=== PATIENT | male | born 1945 | race Caucasian/White ===

== ENCOUNTER 2020-03-28 05:54 | Inpatient (IN) ==
--- NOTE | 2020-03-12 21:20 | PAT Medication Instructions ---
Medication Instructions Date of Service March 12, 2020 Home Medications amlodipine 5 mg PO HS cholecalciferol (vitamin D3) [Vitamin D3] 25 mcg PO DAILY cyanocobalamin (vitamin B-12) 1,000 mcg PO UD ferrous sulfate [iron] 325 mg PO DAILY furosemide 20 mg PO QAM lisinopril 40 mg PO QAM naproxen sodium [Aleve] 440 mg PO QAM omega 1-fyz-icg-fish oil [Fish Oil] 1 cap PO DAILY potassium chloride 10 meq PO QAM simvastatin 20 mg PO QAM Continue as directed cyanocobalamin (vitamin B-12) 1,000 mcg PO UD ASK your surgeon for instructions naproxen sodium [Aleve] 440 mg PO QAM STOP taking 2 weeks before surgery (or as soon as possible if surgery is within 2 weeks) omega 7-sle-rar-fish oil [Fish Oil] 1 cap PO DAILY DO NOT take the morning of surgery cholecalciferol (vitamin D3) [Vitamin D3] 25 mcg PO DAILY ferrous sulfate [iron] 325 mg PO DAILY furosemide 20 mg PO QAM lisinopril 40 mg PO QAM potassium chloride 10 meq PO QAM Take morning of surgery With a small sip of water, OTHERWISE NOTHING TO EAT OR DRINK AFTER MIDNIGHT: simvastatin 20 mg PO QAM Take evening before surgery amlodipine 5 mg PO HS Other Notes If you have any questions please call us at [phone] or [phone] or [phone] or [phone]
--- NOTE | 2020-03-15 09:56 | Anesthesiology Consultation ---
Date of Service March 15, 2020 Assessment & Plan (1) Encounter for pre-operative examination: - LBBB on preop EKG: No previous EKG's for comparison. Awaiting response from PCP (Dr. Lugo). Per PAT assessment on 03/15: Travel screen- Lives in [facility]. Travel to [place] and [facility]. No known COVID-19 positive contacts. No current COVID-19 related symptoms. Patient had preop testing prior to appendectomy. Franco medrano's COVID testing 02/08/20 at [facility] was negative. Chart Review Chart Review: Patient seen in Pre Admission Testing Teaching & Discussion Pre-Anesthesia Teaching/Discussion Notes: Instructed NPO after midnight before surgery,except medications with 15 cc of water. Medication instructions pro vided according to the PAT guidelines. History Surgery Operation Date: 03/28/20 07:45 Proposed Procedures p L3-S1 Decompression and Fusion, Spinal Cord Monitoring - Jerrod Almaguer, Height/Weight Height: 5 ft 11 in Weight: 101.7 kg Allergies Allergy/AdvReac Type Severity Reaction Status Date / Time No Known Allergies Allergy Verified 03/08/20 08:43 Medications Home Medications Medication Instructions Recorded Confirmed Last Taken amlodipine 5 mg PO HS 03/08/20 03/08/20 Unknown cholecalciferol (vitamin D3) 25 mcg PO DAILY 03/08/20 03/08/20 Unknown [Vitamin D3] cyanocobalamin (vitamin B-12) 1,000 mcg PO UD 03/08/20 03/08/20 Unknown ferrous sulfate [iron] 325 mg PO DAILY 03/08/20 03/08/20 Unknown furosemide 20 mg PO QAM 03/08/20 03/08/20 Unknown lisinopril 40 mg PO QAM 03/08/20 03/08/20 Unknown naproxen sodium [Aleve] 440 mg PO QAM 03/08/20 03/08/20 Unknown omega 7-aol-klc-fish oil [Fish Oil] 1 cap PO DAILY 03/08/20 03/08/20 Unknown potassium chloride 10 meq PO QAM 03/08/20 03/08/20 Unknown simvastatin 20 mg PO QAM 03/08/20 03/08/20 Unknown Past Medical History Medical History Back problem High cholesterol HTN (hypertension) Obesity Exercise / Class Metabolic Activity II 4-5 Yardwork/Stairs/Walk up hill (one flight of stairs (no chest pain/no sob)) Past Surgical History Surgical History [facility] of [facility] (02[facility]08[facility]20) History of colonoscopy Past Anesthesia History No Hx of Anesthesia Complications and No Family Hx of Anesthesia Complications History of PONV No Hx of PONV and No Hx of Motion Sickness Social History Smoking Status: Former smoker Do You Dip or Chew Tobacco: No (HX OF QUIT 35 YR AGO) Smoking End Date: Quit 40 YR AGO Hx Alcohol Use: Yes Alcohol type: beer alcohol intake frequency: 3 or more drinks per day (2-3 BEERS A DAY, TYPICALLY EVENING ) Hx Substance Use: No substance use type: does not use Review of Systems Patient denies chest pain, shortness of breath, dyspnea on exertion, reflux, cough, wheezing, palpitations. Physical Exam Vital Signs VITALS BP 100/64 P 93 TEMP 98.5 SP02 97%RA RESP 18 PHYSICAL Full neck and c-spine range of motion. Full TMJ range of motion. TMD 3 finger breaths Mallampati Score 2 Dentition: upper/lower dentures Lungs: clear throughout to auscultation Cardiac: regular rate and rhythm, no murmurs noted Spine: normal Carotid arteries: negative bruit Extremities: no edema + trimmed simon Testing Laboratory Results 03/15/20 10:22 APTT 26.4 Seconds (21.0-31.0) 03/15/20 10:22 Urine Color Yellow 03/15/20 10:22 Urine Appearance Clear (Clear) 03/15/20 10:22 Urine pH 5.0 (4.5-7.5) 03/15/20 10:22 Ur Specific Mobile 1.013 (1.000-1.030) 03/15/20 10:22 Urine Protein Negative (Negative) 03/15/20 10:22 Urine Glucose (UA) Negative (Negative) 03/15/20 10:22 Urine Ketones Negative (Negative) 03/15/20 10:22 Urine Nitrite Negative (Negative) 03/15/20 10:22 Ur Leukocyte Esterase Negative (Negative) 03/15/20 10:22 Blood Type O Positive 03/15/20 10:22 Antibody Screen NEGATIVE 03/15/20 10:22 *Preop testing to be faxed to PCP for their reference* 02/10/20 PT 15.6 INR 1.3 Electrocardiogram Date: 03/15/20 NSR at 86bpm. LBBB. Chest X-Ray Date: 03/15/20 Cardiomediastinal and hilar silhouettes are within normal limits. Calcified plaque of the thoracic aortic arch. Lungs are hyperinflated. No pneumothorax, pleural effusion, airspace consolidation or overt pulmonary edema. Degenerative changes of the shoulders and spine. IMPRESSION: No acute process.
--- NOTE | 2020-03-15 10:45 | XRay Report ---
XR chest Pre-admission PA/Lat HISTORY: 74 years-old Male PAT preoperative exam. No acute chest complaints COMPARISON: None TECHNIQUE: PA and lateral views of the chest FINDINGS: Cardiomediastinal and hilar silhouettes are within normal limits. Calcified plaque of the thoracic ao rtic arch. Lungs are hyperinflated. No pneumothorax, pleural effusion, airspace consolidation or over t pulmonary edema. Degenerative changes of the shoulders and spine. IMPRESSION: No acute process. ACT 112: Negative or not required by law. The above report was generated using voice recognition software. It may contain grammatical, syntax o r spelling errors. Electronically signed by: Nicholas Fermin M.D. 03/15/2020 10:43 AM
[2020-03-15 12:15] LABS: Basophils # (auto) 0.08 K/uL (0-0.2); Basophils % (auto) 1.1 %; Eosinophils # (auto) 0.17 K/uL (0-0.5); Eosinophils % (auto) 2.3 %; Hematocrit (blood only) 33.7 % (42-52); Hemoglobin 11.1 g/dL (14.0-18.0); Immature Granulocytes # (auto) 0.06 K/uL (0.00-0.02); Immature Granulocytes % (auto) 0.8 %; Lymphocytes # (auto) 1.31 K/uL (1.2-3.4); Lymphocytes % (auto) 17.8 %; Mean Corpuscular Hgb Conc 32.9 g/dL (32-36); Mean Corpuscular Volume 94.1 fL (80-100); Mean Platelet Volume 10.3 fL (7.4-10.4); Monocytes # (auto) 0.48 K/uL (0.11-0.59); Monocytes % (auto) 6.5 %; Neutrophils # (auto) 5.24 K/uL (1.4-6.5); Neutrophils % (auto) 71.5 %; Platelet Count 259 K/uL (130-400); RDW Coefficient of Variation 14.3 % (11.5-14.5); RDW Standard Deviation 49.1 fL (36.4-46.3); Red Blood Count 3.58 M/uL (4.7-6.1); White Blood Count 7.34 K/uL (4.8-10.8)
[2020-03-15 12:16] LABS: Appearance Urine Clear (Clear); Bilirubin Urine Negative (Negative); Blood Urine Negative (Negative); Color Urine Yellow; Glucose Urine UA Negative (Negative); Ketones Urine Negative (Negative); Leukocyte Esterase Urine Negative (Negative); Nitrite Urine Negative (Negative); Protein Urine Negative (Negative); Specific Gravity Urine 1.013 (1.000-1.030); Urobilinogen Urine Negative (Negative)
--- NOTE | 2020-03-15 12:20 | Electrocardiogram Report ---
Test Reason : Blood Pressure : / mmHG Vent. Rate : 086 BPM Atrial Rate : 086 BPM P-R Int : 198 ms QRS Dur : 150 ms QT Int : 410 ms P-R-T Axes : 075 064 -11 degrees QTc Int : 490 ms Normal sinus rhythm Left bundle branch block Abnormal ECG No previous ECGs available Confirmed by Stanton Negrete ([id number]) on 03/15/2020 12:20:25 PM Referred By: Jerrod Almaguer Confirmed By:Kalyan Negrete
[2020-03-15 12:26] LABS: Partial Thromboplastin Ratio 0.9; Partial Thromboplastin Time 26.4 Seconds (21.0-31.0)
[2020-03-15 14:18] LABS: BUN Creatinine Ratio 39.7 (10-20); Calcium 9.8 mg/dl (8.5-10.1); Creatinine Clr Calc Pharmacy 65.9 ml/min; Est GFR (African American) 67.6; Est GFR (Non-African American) 58.3; Potassium 4.7 mmol/L (3.5-5.1)
[2020-03-28] MEDS ORDERED: CeleBREX 200 MG CAP PO SCH (06:00)
[2020-03-28] MEDS ORDERED: LR 15ML/HR IV SCH (06:00)
[2020-03-28] MEDS ORDERED: ACETAMINOPHEN 500 MG TAB PO SCH (06:00)
[2020-03-28] MEDS ORDERED: GABAPENTIN 300 MG CAP PO SCH (06:00)
[2020-03-28] MEDS ORDERED: CEFAZOLIN 2000MG 2,000 MG/15 ML SYR IV SCH (06:00)
[2020-03-28] MEDS ORDERED: MIDAZOLAM HCL 1 MG/ML 2ML VIAL ONE (06:55)
[2020-03-28] MEDS ORDERED: GLYCOPYRROLATE 0.2 MG/ML VIAL ONE (06:55)
[2020-03-28] MEDS ORDERED: NEOSTIGMINE METHYLSULFATE 5 MG/5 ML SYR ONE (06:55)
[2020-03-28] MEDS ORDERED: DEXAMETHASONE SOD INJ 4 MG/ML VIAL ONE (06:55)
[2020-03-28] MEDS ORDERED: LIDOCAINE HCL 2% 2 ML VIAL/AMP(20MG/ML) INFIL ONE (06:55)
[2020-03-28] MEDS ORDERED: PROPOFOL IV EMULSION 10 MG/ML 20 ML VIAL IV ONE (06:55)
[2020-03-28] MEDS ORDERED: fentaNYL citrate 100 MCG/2 ML VIAL ONE (06:55)
[2020-03-28] MEDS ORDERED: ONDANSETRON INJ 2 MG/ML 2 ML VIAL ONE (06:55)
[2020-03-28] MEDS ORDERED: BUPIVACAINE 0.5 % 5 MG/1 ML MPF 30ML VIAL ONE (06:58)
[2020-03-28] MEDS ORDERED: EPINEPHrine INJ 1 MG/ML AMP ONE (06:58)
[2020-03-28] MEDS ORDERED: BACITRACIN INJ 50,000 UNIT VIAL ONE (06:58)
[2020-03-28] MEDS ORDERED: ePHEDrine sulfate 50 MG/ML AMP IV PRN (07:24)
[2020-03-28] MEDS ORDERED: ATROPINE SULFATE 0.1 MG/ML 10ML SYR IV PRN (07:24)
[2020-03-28] MEDS ORDERED: ONDANSETRON INJ 2 MG/ML 2 ML VIAL IV PRN ×2 (07:24→11:53)
--- NOTE | 2020-03-28 07:29 | History & Physical Bridge Note ---
Date of Service March 28, 2020 History & Physical Bridge Note I have examined the patient, reviewed the History & Physical and in the interval since the performance of the History & Physical I have noted the following changes of clinical significance: no changes noted
--- NOTE | 2020-03-28 07:30 | History & Physical Report ---
Date of Service March 28, 2020 Assessment & Plan (1) Neurogenic claudication due to lumbar spinal stenosis: 3 to S1 decompression fusion Present on Admission?: Yes History of Present Illness Chief Complaint: Back and bilateral leg pain Primary Care Provider: Tonny Lugo This is a 74-year-old male who presents with chronic persistent back and bilateral leg pain. Failed extensive course of nonoperative care he is here for surgical intervention. Allergies Allergy/AdvReac Type Severity Reaction Status Date / Time No Known Allergies Allergy Verified 03/28/20 06:31 Home Medications Home Medications Medication Instructions Recorded Confirmed Type amlodipine 5 mg PO HS 03/08/20 03/28/20 History cholecalciferol (vitamin D3) 25 mcg PO DAILY 03/08/20 03/28/20 History [Vitamin D3] cyanocobalamin (vitamin B-12) 1,000 mcg PO UD 03/08/20 03/28/20 History ferrous sulfate [iron] 325 mg PO DAILY 03/08/20 03/28/20 History furosemide 20 mg PO QAM 03/08/20 03/28/20 History lisinopril 40 mg PO QAM 03/08/20 03/28/20 History naproxen sodium [Aleve] 440 mg PO QAM 03/08/20 03/28/20 History omega 4-oow-znj-fish oil [Fish Oil] 1 cap PO DAILY 03/08/20 03/28/20 History potassium chloride 10 meq PO QAM 03/08/20 03/28/20 History simvastatin 20 mg PO QAM 03/08/20 03/28/20 History Past Med/Surg History Medical History Back problem High cholesterol HTN (hypertension) Obesity Surgical History History of appendectomy [facility] (02/08/20) History of colonoscopy Social History Preferred Language: Telugu Communication Ability: Effective Xerox Machine Assembler Required: No Beliefs That Will Affect Care: None Current Living Situation: Alone Other Information That Helps Us Care for You: No Feels Safe at Home: Yes Smoking Status: Former smoker Do You Dip or Chew Tobacco: No (HX OF QUIT 35 YR AGO) ; Smoking End Date: Quit 40 YR AGO ; Hx Alcohol Use: Yes Alcohol type: beer Hx Substance Use: No Physical Exam Physical Exam: Patient is alert and oriented neurologically intact. Heart regular rate and rhythm. Lungs clear to auscultation. Results & Data Vital Signs (Past 12 Hours) Vital Signs Temp Pulse Resp BP Pulse Ox 03/28/20 06:38 36.7 C 97 H 18 144/71 H 100
[2020-03-28] MEDS ORDERED: ROCURONIUM BROMIDE 10 MG/ML 5 ML VIAL IV ONE (08:16)
[2020-03-28] MEDS ORDERED: PHENYLEPHRINE 100MCG/ML 5ML SYR ONE (08:16)
[2020-03-28] MEDS ORDERED: FLOSEAL HEMOSTATIC MATRIX 10ML TOP ONE (08:50)
[2020-03-28] MEDS ORDERED: ALBUMIN HUMAN 5% 12.5 GM/250 ML VIAL IV ONE (09:34)
[2020-03-28] MEDS ORDERED: HYDROmorphone INJ 2 MG/ML SYR/VIAL ONE (09:41)
--- NOTE | 2020-03-28 10:14 | Operative Report ---
Post Operative Report Pre & Post Diagnosis Operation Date: 03/28/20 07:45 Pre-Op Diagnosis: Lumbar Spinal Stenosis with Neurogenic Claudication L3-S1 Post-Op Diagnosis: Lumbar Spinal Stenosis with Neurogenic Claudication L3-S1 I identified the patient and participated in the time-out.: Yes Procedure Operation Date: 03/28/20 07:45 Actual Procedures #1 lumbar decompression with bilateral medial facetectomies and foraminotomies L3-4, L4-5 and L5-S1. #2 posterior spinal fusion L3-4 L4-5 and L5-S1. #3 placement posterior segmental instrumentation L3-S1. #4 interbody fusion L4-5 and L5-S1. #5 placement peek cage 13 x 26 mm at L4-5 and 12 x 26 mm at L5-S1. #6 placement locally harvested morselized autograft in the posterior lateral gutters. #7 placement infuse collagen sponge, master graft in the posterior lateral gutters and ostial amp and interbody space. Surgeon Jerrod Almaguer, DO Factory Maintenance Technician Antonia Alcaraz Estimated Blood Loss 900 Findings See Below The patient is 5 foot 11 inches tall weighing over 103 kg with a BMI in excess of 31. This combined with an EBL of greater than 900 cc created significant technical difficulty adding at least 40% increase to the operative time. Specimens None Indications This is a 74-year-old male presents with above-mentioned diagnosis after failing extensive course of nonoperative care is here for the above-mentioned procedure. Description of Procedure Patient was met with preoperatively case discussed all questions addressed. After informed consent obtained. Patient was taken back to the operative suite underwent intubation placed in the prone position the Jose table on top of the Anthony frame. All bony prominences well-padded eyes inspected to ensure no external pressure placed upon them. This point the lumbar spine was prepped and draped in the normal sterile fashion. Sharp dissection with the assistance of Bovie cautery was performed down to and exposing the lamina and transverse processes of L3-L4-L5 and sacral ala bilaterally. From a caudal to cephalad fashion complete laminectomy of L5 L4 and L3 was performed including medial facetectomies and foraminotomies addressing severe spinal stenosis. Pedicle screws were then placed in L3-L4-L5 and S1 levels bilaterally with assistance of fluoroscopy and appropriately sized cuba placed. Believe a transforaminal approach on the right complete discectomy of L5-S1 was performed endplates curetted to subcortical being bone and a 12 x 26 mm peek cage filled with osteo- bone graft tapped in position. Then proceeded L4-[address] of a transforaminal approach on the right a complete discectomy was performed endplates curetted to subcortical and bone and a 13 x 26 mm peek cage filled osteo-bone graft tapped in position. The rods were then locked into final position bilaterally. Transverse processes of L3-L4-L5 and sacral ala burred to subcortical bleeding bone. Infuse collagen sponge master graft local autograft was then placed in the posterior lateral gutters. 15 round CHERRY drain inserted. Incision was then closed with 1 Vicryl in the fascia 2-0 Vicryl subcutaneously and 4 Monocryl for final skin closure. Steri-Strip sterile dressings placed. Patient will continue PACU stable condition. Please note spinal cord monitoring was utilized that the procedure no changes noted. Lastly Antonia Alcaraz was present for the entire procedure involved the patient positioning complex portions of the surgery and final skin closure. I attest to the content of the Intraoperative Record and any orders documented therein. Any exceptions are noted below.
--- NOTE | 2020-03-28 10:21 | Fluoroscopy Report ---
FL lumbar spine 2-3V CLINICAL HISTORY: L3-S1 DECOMPRESSION/FUSION/INTERBODY COMPARISON STUDY: None. FLUOROSCOPY TIME: 22 seconds. FINDINGS: 3 fluoroscopic spot images of the lumbar spine demonstrate posterior decompression and fusi on from L3 through S1 with pedicle screws and rods. The hardware is intact. IMPRESSION: Fluoroscopy provided for posterior decompression and fusion from L3 through S1. ACT 112: Negative or not required by law. Electronically signed by: Shahid Traylor M.D. 03/28/2020 10:19 AM
[2020-03-28] MEDS ORDERED: PHENYLEPHRINE HCL 10 MG/ML VIAL ONE (10:35)
[2020-03-28] MEDS ORDERED: ePHEDrine sulfate 50 MG/ML SYR ONE (10:35)
[2020-03-28] MEDS: fentaNYL citrate 100 MCG/2 ML VIAL IV PRN ×4 (10:57→11:12)
[2020-03-28] MEDS: HYDROmorphone INJ 1 MG/ML SYRINGE IV PRN ×2 (11:17→11:22)
[2020-03-28 11:20] LABS: Hematocrit (blood only) 23.1 % (42-52); Hemoglobin 7.9 g/dL (14.0-18.0)
[2020-03-28] MEDS ORDERED: SODIUM CHLORIDE 0.9% 250 ML IV PRN ×2 (11:37→16:10)
--- NOTE | 2020-03-28 11:44 | Anesthesiology Progress Note ---
Date of Service March 28, 2020 Anesthesia Post Procedure Vital Signs Vital Signs: Temp Pulse Pulse Resp BP BP Pulse Ox 03/28/20 11:15 76 14 107/55 L 100 03/28/20 11:05 85 14 100/50 L 100 03/28/20 10:55 79 11 L 98/52 L 100 03/28/20 10:45 75 13 87/45 L 100 03/28/20 10:35 76 11 L 96/49 L 100 03/28/20 10:26 36.1 C L 71 23 98/57 L 100 03/28/20 06:38 36.7 C 97 H 18 144/71 H 100 Pain Intensity Back: Pain Intensity: 5 Transfer of Care Handoff Completed per policy Notes Mental Status: alert / awake / arousable and participated in evaluation Patient Amnestic to Procedure: Yes Nausea / Vomiting: adequately controlled Pain: adequately controlled Airway Patency, RR, SpO2: stable & adequate BP & HR: stable & adequate Hydration State: stable & adequate Anesthetic Complications: no major complications apparent and Pt Satisfied with anesthetic care Notes: The p Patient postoperative Hgb is 7.9. I informed Dr Almaguer who would like the patient to receive a unit of PRBC now. I spoke to Xenia in PACU who will tell t he nurse in report to start the blood as soon as it is ready since the patient is otherwise ready for transfer. The patient has no complaints and all vital signs are stable
[2020-03-28] MEDS ORDERED: bisacodyL 10 MG SUPP PR PRN (11:53)
[2020-03-28] MEDS ORDERED: DO NOT ADMINISTER FLU VACCINE PRN (11:53)
[2020-03-28] MEDS ORDERED: ALUMINUM/MAGNESIUM SUSP 30 ML UDC PO PRN (11:53)
[2020-03-28] MEDS ORDERED: SOD PHOSPHATE/SOD BIPHOSPHATE ENEMA 132 ML BTL PR PRN (11:53)
[2020-03-28] MEDS ORDERED: HYDROmorphone INJ 0.5 MG/0.5 ML SYR IV PRN (11:53)
[2020-03-28] MEDS ORDERED: OXYCODONE HCL IR 5 MG TAB (IMMEDIATE RELEASE) PO PRN (11:53)
[2020-03-28] MEDS ORDERED: ACETAMINOPHEN 1,000 MG/100 ML VIAL IV PRN (11:53)
[2020-03-28] MEDS ORDERED: LORazepam 0.5 MG/1 ML VIAL IV PRN (11:53)
[2020-03-28] MEDS ORDERED: FAMOTIDINE 20 MG TAB PO PRN (11:53)
[2020-03-28] MEDS ORDERED: LORazepam 0.5 MG TAB PO PRN (11:53)
[2020-03-28] MEDS ORDERED: METOCLOPRAMIDE HCL INJ 5 MG/ML 2 ML VIAL IV PRN (11:53)
[2020-03-28] MEDS ORDERED: PROMETHAZINE HCL 12.5 MG in SODIUM CHLORIDE 0.9% 50 ML IV PRN (11:53)
[2020-03-28] MEDS ORDERED: HYDROmorphone INJ 1 MG/ML SYRINGE IV PRN (11:53)
[2020-03-28] MEDS ORDERED: ONDANSETRON 4 MG OD TAB PO PRN (11:53)
[2020-03-28] MEDS ORDERED: DO NOT ADMINISTER PNEUMOCOCCAL VACCINE PRN (11:53)
[2020-03-28] MEDS ORDERED: NALOXONE HCL 0.4 MG/1 ML VIAL/CARP IV PRN (11:53)
[2020-03-28] MEDS ORDERED: MAGNESIUM HYDROXIDE SUSP 30 ML UDC PO PRN (11:53)
[2020-03-28] MEDS: SODIUM CHLORIDE 0.9% 1000ML 1,000 ML IV SCH (12:34)
--- NOTE | 2020-03-28 12:48 | Hospitalist Consultation ---
Date of Consultation March 28, 2020 Assessment & Plan (1) Neurogenic claudication due to lumbar spinal stenosis: - Pain management, bowel regimen per primary team - PT/OT consults - Hgb s/p surgery 7.9, ordered 1 U PRBCs transfusing at bedside now - Follow am CBC to monitor for acute blood loss (2) Obesity: - BMI of 31.9 (3) HTN (hypertension): - Cont lisinopril 40 mg daily, furosemide 20 mg daily, amlodipine 5 mg PO HS (4) High cholesterol: - Cont simvastatin 20 mg PO AM (5) DVT prophylaxis: Teds, scds CODE: FULL Dispo: From home, likely to remain in the hospital x 1-2 days. Supervising Physician Co-Signing Physician Notes Patient was seen and examined independently I discussed the case with Valeria Weathers PAC I reviewed pertinent past medical social family history and also the plan of care and agree with the plan of care. Patient doing well postoperatively. He is getting transfusion his hemoglobin postoperatively was in the 7 g range and he had an EBL of 900. Subsequent to his volume loss we will hold his Lasix in the morning of 03/29 and delay his amlodipine at bedtime until the evening of 03/29. The dosing of his lisinopril will be based upon hold for blood pressure History of Present Illness Reason for Consultation: Medical management Requesting Physician: Dr. Almaguer Attending Physician: Jerrod Almaguer, History of Present Illness This is a 74 yo M with PMHx of HTN, HLD, obesity with BMI of 31.9, and DJD who s/p decompression fusion by Dr. Almaguer on 03/28/2020. He states that he is feeling well, no pain, has 1 U PRBCs transfusing at bedside. He can move his legs and toes without difficulty, he is sleepy still from anesthesia. Last BM was yesterday. Allergies Allergy/AdvReac Type Severity Reaction Status Date / Time No Known Allergies Allergy Verified 03/28/20 06:31 Home Medications Home Medications Medication Instructions Recorded Confirmed Type amlodipine 5 mg PO HS 03/08/20 03/28/20 History cholecalciferol (vitamin D3) 25 mcg PO DAILY 03/08/20 03/28/20 History [Vitamin D3] cyanocobalamin (vitamin B-12) 1,000 mcg PO UD 03/08/20 03/28/20 History ferrous sulfate [iron] 325 mg PO DAILY 03/08/20 03/28/20 History furosemide 20 mg PO QAM 03/08/20 03/28/20 History lisinopril 40 mg PO QAM 03/08/20 03/28/20 History naproxen sodium [Aleve] 440 mg PO QAM 03/08/20 03/28/20 History omega 5-sfr-yfp-fish oil [Fish Oil] 1 cap PO DAILY 03/08/20 03/28/20 History potassium chloride 10 meq PO QAM 03/08/20 03/28/20 History simvastatin 20 mg PO QAM 03/08/20 03/28/20 History Patient History Medical History Back problem High cholesterol HTN (hypertension) Obesity Surgical History History of appendectomy [facility] (02/08/20) History of colonoscopy Social History Preferred Language: Latvian Communication Ability: Effective Track Walker Required: No Beliefs That Will Affect Care: None Current Living Situation: Alone Other Information That Helps Us Care for You: No Feels Safe at Home: Yes Smoking Status: Former smoker Do You Dip or Chew Tobacco: No (HX OF QUIT 35 YR AGO) ; Smoking End Date: Quit 40 YR AGO ; Hx Alcohol Use: Yes Alcohol type: beer Hx Substance Use: No Review of Systems Review of Systems: Constitutional: No fever, sweats or chills Eyes: No diplopia, no worsening or blurred vision ENT: normal hearing, no trouble swallowing Respiratory: No cough, sputum, dyspnea at rest or on exertion Cardiovascular: No chest pain, tightness or palpitations Abdomen: No pain, nausea, vomiting, diarrhea or constipation Musculoskeletal: No joint pain, calf pain, swelling Neurologic: No weakness, numbness/tingling, or balance problems Psychiatric: No anxiety or depression Skin: No rash or itch Physical Exam Physical Exam: General: awake, alert, no apparent distress Head: Normocephalic, atraumatic ENT: PERRL, EOMI, no pharyngeal exudate, mucous membranes moist Chest: Clear to auscultation, on room air, no adventitious breath sounds Cardiac: Regular rate and rhythm, no murmur, no JVD, normal peripheral pulses, good capillary refill Abdominal: NABS x 4 quadrants, soft, nondistended, nontender to palpation, no rebound, guarding or tenderness, spicer cath draining clear yellow urine Back: dressing c/d/i, CHERRY drain in place and is full of bloody outs Extremities: Normal inspection, no peripheral edema or erythema, calfs nontender to palpation Psych: Normal mood and affect Neuro: AAO x 3, no gross motor deficits, speech is clear, no peripheral sensory deficits Results & Data Results & Data ([facility]) Vital Signs (Past 12 Hours) Vital Signs Temp Pulse Pulse Resp BP BP Pulse Ox 03/28/20 12:20 36.3 C L 77 16 111/66 98 03/28/20 11:59 36.4 C L 77 16 107/55 L 99 03/28/20 11:45 85 14 96/50 L 100 03/28/20 11:35 74 20 94/50 L 100 03/28/20 11:25 36.2 C L 78 19 95/45 L 100 03/28/20 11:15 76 14 107/55 L 100 03/28/20 11:05 85 14 100/50 L 100 03/28/20 10:55 79 11 L 98/52 L 100 03/28/20 10:45 75 13 87/45 L 100 03/28/20 10:35 76 11 L 96/49 L 100 03/28/20 10:26 36.1 C L 71 23 98/57 L 100 03/28/20 06:38 36.7 C 97 H 18 144/71 H 100 PG Care Time/CCT Total # of Minutes Spent Total Time Spent with Patient: Total time spent is greater than 50% in coordination of care (as documented) at patient's floor/unit and/or counseling patient: Coding Level of Care Code 20926 Inpt Consult Level 3 Diagnoses Neurogenic claudication due to lumbar spinal stenosis M48.062 Obesity E66.9 HTN (hypertension) I10 High cholesterol E78.00 DVT prophylaxis Z29.9
[2020-03-28] MEDS: CEFAZOLIN 2000MG 2,000 MG/15 ML SYR IV SCH (16:19)
[2020-03-28] MEDS: ACETAMINOPHEN 500 MG TAB PO PRN (19:47)
[2020-03-28] MEDS: DOCUSATE SODIUM/SENNA 50/8.6MG TAB PO SCH (20:38)
[2020-03-28] MEDS ORDERED: AMLODIPINE BESYLATE 5 MG TAB PO SCH (21:00)
[2020-03-29] MEDS: CEFAZOLIN 2000MG 2,000 MG/15 ML SYR IV SCH (00:33)
[2020-03-29] MEDS: SODIUM CHLORIDE 0.9% 1000ML 1,000 ML IV SCH (05:47)
[2020-03-29] MEDS: POLYETHYLENE (MIRALAX) 17 GM PACK PO SCH ×4 (05:47→23:38)
[2020-03-29 06:37] LABS: Basophils # (auto) 0.01 K/uL (0-0.2); Basophils % (auto) 0.1 %; Hematocrit (blood only) 27.6 % (42-52); Hemoglobin 9.6 g/dL (14.0-18.0); Immature Granulocytes # (auto) 0.03 K/uL (0.00-0.02); Immature Granulocytes % (auto) 0.4 %; Lymphocytes # (auto) 0.43 K/uL (1.2-3.4); Lymphocytes % (auto) 5.1 %; Mean Corpuscular Hemoglobin 31.6 pg (25-34); Mean Corpuscular Hgb Conc 34.8 g/dL (32-36); Mean Corpuscular Volume 90.8 fL (80-100); Mean Platelet Volume 9.5 fL (7.4-10.4); Monocytes # (auto) 0.39 K/uL (0.11-0.59); Monocytes % (auto) 4.6 %; Neutrophils # (auto) 7.57 K/uL (1.4-6.5); Neutrophils % (auto) 89.8 %; Platelet Count 225 K/uL (130-400); RDW Coefficient of Variation 15.7 % (11.5-14.5); RDW Standard Deviation 52.2 fL (36.4-46.3); Red Blood Count 3.04 M/uL (4.7-6.1); White Blood Count 8.43 K/uL (4.8-10.8)
[2020-03-29 07:15] LABS: Creatinine Clr Calc Pharmacy 73.8 ml/min; Est GFR (African American) 76.5; Potassium 4.4 mmol/L (3.5-5.1)
--- NOTE | 2020-03-29 07:55 | Anesthesiology Progress Note ---
Date of Service March 29, 2020 Anesthesia Post Procedure Vital Signs Vital Signs: Temp Pulse Pulse Pulse Resp BP BP 03/29/20 07:00 36.6 C 87 14 103/60 03/29/20 03:53 36.7 C 93 H 18 108/60 03/28/20 23:45 36.6 C 104 H 20 123/66 03/28/20 19:38 36.6 C 100 H 18 122/67 03/28/20 19:30 36.6 C 100 H 18 122/67 03/28/20 18:40 36.5 C 114 H 16 131/76 03/28/20 18:30 36.5 C 114 H 16 03/28/20 17:30 98 H 20 136/79 03/28/20 17:00 36.2 C L 97 H 18 123/69 03/28/20 16:47 36.3 C L 96 H 18 118/73 03/28/20 16:28 36.3 C L 100 H 18 119/67 03/28/20 15:56 36.4 C L 89 18 112/61 03/28/20 15:15 36.3 C L 88 16 104/60 03/28/20 14:57 36.3 C L 86 16 114/64 03/28/20 14:12 36.3 C L 87 16 115/64 03/28/20 13:49 36.4 C L 76 16 103/56 L 03/28/20 13:18 36.4 C L 76 16 103/56 L 03/28/20 13:03 36.3 C L 84 16 101/55 L 03/28/20 12:54 36.4 C L 88 14 112/62 03/28/20 12:47 36.3 C L 84 12 107/54 L 03/28/20 12:20 36.3 C L 77 16 111/66 03/28/20 11:59 36.4 C L 77 16 107/55 L 03/28/20 11:45 85 14 96/50 L 03/28/20 11:35 74 20 94/50 L 03/28/20 11:25 36.2 C L 78 19 95/45 L 03/28/20 11:15 76 14 107/55 L 03/28/20 11:05 85 14 100/50 L 03/28/20 10:55 79 11 L 98/52 L 06/29/20 10:45 75 13 87/45 L 03/28/20 10:35 76 11 L 96/49 L 03/28/20 10:26 36.1 C L 71 23 98/57 L Pulse Ox 03/29/20 07:00 98 03/29/20 03:53 97 03/28/20 23:45 97 03/28/20 19:38 96 03/28/20 19:30 96 03/28/20 18:40 98 03/28/20 18:30 98 03/28/20 17:30 97 03/28/20 17:00 97 03/28/20 16:47 99 03/28/20 16:28 97 03/28/20 15:56 98 03/28/20 15:15 99 03/28/20 14:57 97 03/28/20 14:12 03/28/20 13:49 97 03/28/20 13:18 97 03/28/20 13:03 98 03/28/20 12:54 99 03/28/20 12:47 03/28/20 12:20 98 03/28/20 11:59 99 03/28/20 11:45 100 03/28/20 11:35 100 03/28/20 11:25 100 03/28/20 11:15 100 03/28/20 11:05 100 03/28/20 10:55 100 03/28/20 10:45 100 03/28/20 10:35 100 03/28/20 10:26 100 Pain Intensity Back: Pain Intensity: 3 Notes Mental Status: alert / awake / arousable and participated in evaluation Patient Amnestic to Procedure: Yes Nausea / Vomiting: adequately controlled Pain: adequately controlled Airway Patency, RR, SpO2: stable & adequate BP & HR: stable & adequate Hydration State: stable & adequate Anesthetic Complications: no major complications apparent
[2020-03-29] MEDS: FERROUS SULFATE 325 MG TAB PO SCH (08:14)
[2020-03-29] MEDS: CHOLECALCIFEROL 1,000 UNITS 25 MCG TAB PO SCH (08:15)
[2020-03-29] MEDS: POTASSIUM CHLORIDE 10 MEQ TABCR PO SCH (08:15)
[2020-03-29] MEDS ORDERED: FUROSEMIDE 20 MG TAB PO SCH (09:00)
[2020-03-29] MEDS ORDERED: SIMVASTATIN 20 MG TAB PO SCH (09:00)
[2020-03-29] MEDS ORDERED: lisinopriL 40 MG TAB PO SCH (09:00)
[2020-03-29] MEDS: ACETAMINOPHEN 500 MG TAB PO PRN (10:01)
--- NOTE | 2020-03-29 14:04 | Orthopedic Progress Note ---
Date of Service March 29, 2020 Assessment & Plan (1) Neurogenic claudication due to lumbar spinal stenosis: This time we will continue physical therapy monitor his CHERRY output consider discharge home or Saturday with home health. Present on Admission?: Yes Admission and Anticipated Discharge Date Admission Date: March 28, 2020 Subjective Back pain controlled leg pain markedly improved. Physical Exam Physical Exam: Patient is in the chair at the bedside. Skin strength testing. Appears comfortable. Results & Data ([facility]) Vital Signs (Past 12 Hours) Vital Signs Temp Pulse Resp BP Pulse Ox 03/29/20 11:00 36.5 C 91 H 16 109/66 98 03/29/20 07:00 36.6 C 87 14 103/60 98 03/29/20 03:53 36.7 C 93 H 18 108/60 97
--- NOTE | 2020-03-29 14:11 | Hospitalist Progress Note ---
Date of Service March 29, 2020 Assessment & Plan (1) Neurogenic claudication due to lumbar spinal stenosis: * POD #1 s/p lumbar decompression and bilateral medial facetectomies and foraminotomies L3-4, L4-5 and L5-S1 with fusion L3-4 L4-5 and L5-S1. EBL 900mL. Pre-op h/h 11.1/33.7 * H/h dropped to 7.9/23.1 -- acute blood loss anemia secondary to surgery in combination with dilutional from IVF--> received 2 U PRBC with improvement of h/h to 9.6/27.6 * PT/OT/Pain management/DVT prophylaxis per primary team * CBC in AM (2) Acute blood loss anemia: * See above. Patient with history of anemia as well and takes ferrous sulfate 325mg PO daily, continued while inpatient (3) HTN (hypertension): * Chronic. Stable -- per patient, he typically runs in the 100s systolically * Currently 109/66 --> lasix, amlodopine on hold post-op * Held lisinopril morning of 03/29 for BP 103/60 with patient feeling lightheaded * Will resume amlodipine evening 03/29 and lisinopril AM 03/30 * Of note, patient states he takes furosemide 20mg BID outpatient --> will resume 03/30 pending BMP * Continue to monitor (4) High cholesterol: * Chronic. Stable * Continue home simvastatin 20mg, but change to qHS as that is how patient states he takes it at home (5) Obesity: * BMI of 31.9 (6) LBBB (left bundle branch block): Seen on preop ECG and Anesthesia notes report a response from PCP stating LBBB is old. (7) DVT prophylaxis: * Teds, scds Thank you for allowing hospitalist team to participate in the care of Mr. Lassiter. Hospitalist service will follow along. Admission and Anticipated Discharge Date Admission Date: March 28, 2020 Supervising Physician Co-Signing Physician Notes FELIBERTO Supervision Note: I did not personally see or examine the patient today, but I verified all ahuja points of FELIBERTO Murphy's assessment and plan with the following exceptions/additions: None Subjective Patient evaluated this morning. Has been using tylenol for pain control and rates pain 5/10. Has not had BM or passed flatus today. Denies abdominal pain at this time. Denies any numbness or tingling. Has been up walking to the bathroom without difficulty. Did feel slightly lightheaded at one point earlier this morning when getting up but nothing since that time. Blood pressures usually run low at home, per patient. Patient states he believes he received 2 units of blood and was told he did have quite a bit of blood loss during surgery. Discussed holding his blood pressure medications temporarily post-operatively and that we will restart as BP tolerates. Eating/drinking without difficulty. Hopeful for discharge in next day or two. Denies fevers, chills, chest pain, shortness of breath, abdominal pain, n/v/d, dysuria at this time. Review of Systems Review of Systems: All systems reviewed & are unremarkable except as noted in HPI & below Physical Exam Constitutional: WD/WN, vitals as above no acute distress Eyes: + anicteric sclerae and PERRL Neck: trachea midline, no thyromegaly Respiratory: normal respiratory effort, lungs clear to auscultation Cardiovascular: RRR, no murmur, no edema Gastrointestinal (Abdomen): normal bowel sounds, soft, nontender, no hepatosplenomegaly Musculoskeletal: no cyanosis or clubbing, extremities motor strength 5/5 dressing to low back c/d/i CHERRY with approximately 100cc bloody drainage, patent 2+ pulses dp, pt bilaterally calves non-tender to palpation Skin: no rashes, warm and dry Neurologic: patellar DTR's 2+ bilat, sensation intact Psychiatric: A+Ox3, euthymic affect Lymphatic: no cervical or axillary lymphadenopathy Results & Data Results & Data ([facility]) Vital Signs (Past 12 Hours) Vital Signs Temp Pulse Resp BP Pulse Ox 03/29/20 11:00 36.5 C 91 H 16 109/66 98 03/29/20 07:00 36.6 C 87 14 103/60 98 03/29/20 03:53 36.7 C 93 H 18 108/60 97 Laboratory Results 03/29/20 03/29/20 03/28/20 Range/Units 06:06 06:06 06:22 WBC 8.43 (4.8-10.8) K/uL RBC 3.04 L (4.7-6.1) M/uL Hgb 9.6 L (14.0-18.0) g/dL Hct 27.6 L (42-52) % MCV 90.8 (80-100) fL MCH 31.6 (25-34) pg MCHC 34.8 (32-36) g/dL RDW Std Deviation 52.2 H (36.4-46.3) fL RDW Coeff of Alon 15.7 H (11.5-14.5) % Plt Count 225 (130-400) K/uL MPV 9.5 (7.4-10.4) fL Immature Gran % (Auto) 0.4 % Neut % (Auto) 89.8 % Lymph % (Auto) 5.1 % Pinal % (Auto) 4.6 % Eos % (Auto) 0.0 % Baso % (Auto) 0.1 % Neut # (Auto) 7.57 H (1.4-6.5) K/uL Lymph # (Auto) 0.43 L (1.2-3.4) K/uL Pinal # (Auto) 0.39 (0.11-0.59) K/uL Eos # (Auto) 0.00 (0-0.5) K/uL Baso # (Auto) 0.01 (0-0.2) K/uL Immature Gran # (Auto) 0.03 H (0.00-0.02) K/uL Sodium 139 (136-145) mmol/L Potassium 4.4 (3.5-5.1) mmol/L Chloride 111 H (98-107) mmol/L Carbon Dioxide 22 (21-32) mmol/L Anion Gap 7.0 (3-11) BUN 30 H (7-18) mg/dl Creatinine 1.11 (0.6-1.4) mg/dl Est Cr Clr Drug Dosing 73.8 ml/min Est GFR ( Amer) 76.5 Est GFR (Non-Af Amer) 66.0 BUN/Creatinine Ratio 27.0 H (10-20) Glucose 184 H (70-99) mg/dl Calcium 9.0 (8.5-10.1) mg/dl Blood Type O Positive Antibody Screen NEGATIVE Crossmatch See Detail PG Care Time/CCT Total # of Minutes Spent Total Time Spent with Patient: Total time spent is greater than 50% in coordination of care (as documented) at patient's floor/unit and/or counseling patient: Coding Level of Care Code 44944 Subseq Hosp Care Lvl 3 Diagnoses Neurogenic claudication due to lumbar spinal stenosis M48.062 Acute blood loss anemia D62 HTN (hypertension) I10 High cholesterol E78.00 Obesity E66.9 LBBB (left bundle branch block) I44.7 DVT prophylaxis Z29.9
[2020-03-29] MEDS: TRAMADOL HCL 50 MG TABLET PO PRN (15:54)
[2020-03-29] MEDS: AMLODIPINE BESYLATE 5 MG TAB PO SCH (19:22)
[2020-03-29] MEDS: DOCUSATE SODIUM/SENNA 50/8.6MG TAB PO SCH (19:23)
[2020-03-30] MEDS: POLYETHYLENE (MIRALAX) 17 GM PACK PO SCH ×2 (05:54→10:44)
[2020-03-30 06:11] LABS: Hematocrit (blood only) 28.2 % (42-52); Hemoglobin 9.1 g/dL (14.0-18.0); Mean Corpuscular Hemoglobin 30.6 pg (25-34); Mean Corpuscular Hgb Conc 32.3 g/dL (32-36); Mean Corpuscular Volume 94.9 fL (80-100); Mean Platelet Volume 9.1 fL (7.4-10.4); Platelet Count 207 K/uL (130-400); RDW Coefficient of Variation 15.9 % (11.5-14.5); RDW Standard Deviation 55.6 fL (36.4-46.3); Red Blood Count 2.97 M/uL (4.7-6.1); White Blood Count 7.25 K/uL (4.8-10.8)
[2020-03-30 06:42] LABS: Creatinine Clr Calc Pharmacy 98.6 ml/min; Est GFR (African American) 101.9; Est GFR (Non-African American) 87.9; Potassium 4.5 mmol/L (3.5-5.1)
[2020-03-30 06:43] LABS: BUN Creatinine Ratio 28.5 (10-20); Calcium 9.1 mg/dl (8.5-10.1)
[2020-03-30] MEDS: CHOLECALCIFEROL 1,000 UNITS 25 MCG TAB PO SCH (08:43)
[2020-03-30] MEDS: FERROUS SULFATE 325 MG TAB PO SCH (08:43)
[2020-03-30] MEDS: POTASSIUM CHLORIDE 10 MEQ TABCR PO SCH (08:43)
[2020-03-30] MEDS: DEXAMETHASONE SOD PHOSPHATE 8 MG in SYRINGE 0 ML IV SCH (08:44)
[2020-03-30] MEDS: FUROSEMIDE 20 MG TAB PO SCH ×2 (09:00→20:33)
[2020-03-30] MEDS ORDERED: FUROSEMIDE 20 MG TAB PO SCH (09:00)
[2020-03-30] MEDS: TRAMADOL HCL 50 MG TABLET PO PRN ×2 (10:46→22:12)
--- NOTE | 2020-03-30 12:16 | Hospitalist Progress Note ---
Date of Service March 30, 2020 Assessment & Plan (1) Neurogenic claudication due to lumbar spinal stenosis: * POD #2 s/p lumbar decompression and bilateral medial facetectomies and foraminotomies L3-4, L4-5 and L5-S1 with fusion L3-4 L4-5 and L5-S1. EBL 900mL. Pre-op h/h 11.1/33.7 * H/h dropped to 7.9/23.1 -- acute blood loss anemia secondary to surgery in combination with dilutional from IVF--> received 2 U PRBC with improvement of h/h to 9.6/27.6 * H/h stable at 9.1/28.2 * Is receiving IV dexamethasone 8mg IV daily starting 03/[address] Almaguer * PT/OT/Pain management/DVT prophylaxis per primary team (2) Acute blood loss anemia: * See above. Patient with history of anemia as well and takes ferrous sulfate 325mg PO daily, continued while inpatient (3) HTN (hypertension): * Chronic. Stable -- per patient, he typically runs in the 100s systolically * Lasix, amlodipine, lisinopril on hold post-op --> all resumed by 03/30 with BP well controlled at 132/74 * Of note, lasix adjusted to 20mg PO BID as that is how he states he takes it outpatient * No further lightheadedness reported * Continue to monitor (4) High cholesterol: * Chronic. Stable * Continue home simvastatin 20mg, but changed to qHS as that is how patient states he takes it at home (5) Obesity: * BMI of 31.9 (6) LBBB (left bundle branch block): * Seen on preop ECG and Anesthesia notes report a response from PCP stating LBBB is old. (7) DVT prophylaxis: * Teds, scds Thank you for allowing hospitalist team to participate in the care of Mr. Lassiter. Hospitalist service will sign off at this time. Please call with any questions/concerns Admission and Anticipated Discharge Date Admission Date: March 28, 2020 Supervising Physician Co-Signing Physician Notes PA Supervision Note: I did not personally see or examine the patient today, but I verified all ahuja points of FELIBERTO Murphy's assessment and plan with the following exceptions/additions: None Subjective Patient evaluated this morning. States + flatus and BM this morning. States he was up walking with therapy this morning but did forget to use his brace. He reports that he had an episode of inability to void last night and ended up having to be straight cathed x 2, but since that time has voided twice without difficulty. He states back pain is approximately 5/10 and is requesting nursing give him something at this time. Denies any numbness/tingling. Denies fevers, chills, shortness of breath, chest pain, abdominal pain, n/v/d at this time. Hopeful for discharge home tomorrow if CHERRY drain output slows and is removed, as he states that was what Dr. Almaguer told him this morning. All questions/concerns addressed at this time. Review of Systems Review of Systems: All systems reviewed & are unremarkable except as noted in HPI & below Physical Exam Constitutional: WD/WN, vitals as above no acute distress Eyes: + anicteric sclerae and PERRL Neck: trachea midline, no thyromegaly Respiratory: normal respiratory effort, lungs clear to auscultation Cardiovascular: RRR, no murmur, no edema Gastrointestinal (Abdomen): normal bowel sounds, soft, nontender, no hepatosp lenomegaly Musculoskeletal: no cyanosis or clubbing, extremities motor strength 4/5 dressing to low back c/d/i CHERRY with approximately 75cc bloody drainage, patent 2+ pulses dp, pt bilaterally calves non-tender to palpation Skin: no rashes, warm and dry Neurologic: patellar DTR's 2+ bilat, sensation intact Psychiatric: A+Ox3, euthymic affect Lymphatic: no cervical or axillary lymphadenopathy Results & Data Results & Data ([facility]) Vital Signs (Past 12 Hours) Vital Signs Temp Pulse Resp BP Pulse Ox 03/30/20 07:38 36.3 C L 87 16 132/74 99 Laboratory Results 03/30/20 03/30/20 Range/Units 05:53 05:53 WBC 7.25 (4.8-10.8) K/uL RBC 2.97 L (4.7-6.1) M/uL Hgb 9.1 L (14.0-18.0) g/dL Hct 28.2 L (42-52) % MCV 94.9 (80-100) fL MCH 30.6 (25-34) pg MCHC 32.3 (32-36) g/dL RDW Std Deviation 55.6 H (36.4-46.3) fL RDW Coeff of Alon 15.9 H (11.5-14.5) % Plt Count 207 (130-400) K/uL MPV 9.1 (7.4-10.4) fL Sodium 141 (136-145) mmol/L Potassium 4.5 (3.5-5.1) mmol/L Chloride 114 H (98-107) mmol/L Carbon Dioxide 25 (21-32) mmol/L Anion Gap 2.0 L (3-11) BUN 24 H (7-18) mg/dl Creatinine 0.83 (0.6-1.4) mg/dl Est Cr Clr Drug Dosing 98.6 ml/min Est GFR ( Amer) 101.9 Est GFR (Non-Af Amer) 87.9 BUN/Creatinine Ratio 28.5 H (10-20) Glucose 119 H (70-99) mg/dl Calcium 9.1 (8.5-10.1) mg/dl PG Care Time/CCT Total # of Minutes Spent Total Time Spent with Patient: Total time spent is greater than 50% in coordination of care (as documented) at patient's floor/unit and/or counseling patient: Coding Level of Care Code 47241 Subseq Hosp Care Lvl 3 Diagnoses Neurogenic claudication due to lumbar spinal stenosis M48.062 Acute blood loss anemia D62 HTN (hypertension) I10 High cholesterol E78.00 Obesity E66.9 LBBB (left bundle branch block) I44.7 DVT prophylaxis Z29.9
--- NOTE | 2020-03-30 12:26 | Orthopedic Progress Note ---
Date of Service March 30, 2020 Assessment & Plan (1) Acute blood loss anemia: At this time we will continue physical therapy monitor CHERRY output anticipate possible discharge home tomorrow. Present on Admission?: Yes Admission and Anticipated Discharge Date Admission Date: March 28, 2020 Subjective Back pain controlled leg pain improved Physical Exam Physical Exam: Patient is ambulating halls. He is comfortable. Results & Data ([facility]) Vital Signs (Past 12 Hours) Vital Signs Temp Pulse Resp BP Pulse Ox 03/30/20 07:38 36.3 C L 87 16 132/74 99
[2020-03-30] MEDS: AMLODIPINE BESYLATE 5 MG TAB PO SCH (20:34)
[2020-03-30] MEDS: DOCUSATE SODIUM/SENNA 50/8.6MG TAB PO SCH (20:34)
[2020-03-30] MEDS ORDERED: SIMVASTATIN 20 MG TAB PO SCH (21:00)
--- NOTE | 2020-03-31 07:51 | Discharge Summary ---
Date of Service March 31, 2020 Admission HPI Per Admitting Provider This is a 74-year-old male who presents with chronic persistent back and bilateral leg pain. Failed extensive course of nonoperative care he is here for surgical intervention. Principal Diagnosis Lumbar spinal stenosis with neurogenic claudication Discharge Data Allergies Allergy/AdvReac Type Severity Reaction Status Date / Time No Known Allergies Allergy Verified 03/28/20 06:31 Consultations 03/28/20 11:53 Consult Case Management - Discharge Planning Routine Consult Hospitalist Routine Procedures Performed Operation Date: 03/28/20 07:45 Actual Procedures p L3-S1 Decompression and Fusion, with Bone Morphogenetic Protein, Interbody Fusion L4-5, L5-S1, Application of Osteoamp Allograft, Spinal Cord Monitoring(Not Applicable) - Jerrod Almaguer DO Ordered Studies 03/28/20 07:45 FL fluoroscopy <1hr Routine FL lumbar spine 2-3V Routine Hospital Course (1) Neurogenic claudication due to lumbar spinal stenosis: Patient underwent multilevel lumbar decompression fusion tolerated so was taken to orthopedic floor postoperative. Postop day #1 he was up and ambulating progressed to postop day 2 on postop day 3 CHERRY drain decreased probably. Pain well controlled. Subsequent discharge home. Discharge orders instructions from the chart for further review. Total Time Total Time Spent Total Time Spent (In Minutes): 20 minutes Discharge Plan Discharge Items Patient Disposition: Home - Home Health Services Reason For Visit: LUMBAR SPINAL STENOSIS W/NEUROGENIC CLAUDICATION Discharge Diagnosis: Lumbar spinal stenosis with neurogenic claudication Activity: As commented below Non-emergency contact: Primary Care Provider Call non-emergency contact if: you have any medication questions Follow-up/Referrals: Tonny Lugo D.O. [Primary Care Provider] - Diet: Regular Addtl Attending Provider Instructions: ACTIVITY RECOMMENDATIONS: SELF CARE INSTRUCTIONS AFTER THORACIC/LUMBAR FUSIONS 1. You may walk to your tolerance. It is good exercise for your legs and back. Expect some back and intermittent leg aches and pains. 2. You may perform "counter-top" level activities (make a sandwich, brandin with a project, etc.). 3. No bending or lifting of more than 10 pounds or back twisting of any nature (roll like a log when turning in bed). 4. You may ride in a car for 20-30 minutes at a time. No driving until after your first visit with your doctor. 5. Frequent changes of position and restricting sitting to 30 minutes at a time will help limit the amount of back spasms and stiffness you may experience. 6. You may discontinue the use of ambulatory aids (cane, crutches, etc.) once your strength and confidence allow. 7. You may public information coordinator the shower and let water strike your incision when you arrive home at least once daily. Do not take a tub bath, sit in a hot tub or go into a swimming pool until after your first recheck in the office. SPECIAL CARE INSTRUCTIONS: VERY IMPORTANT TO READ AND REVIEW A. Your surgical incision has been closed with a cosmetic suture under the skin that will dissolve in about 6 weeks. In 14 days, you can use a pair of clean scissors and cut the suture that is left outside of the skin at the ends of your incision. 1. The small skin tapes can be removed 7 days after surgery if they have not fallen off by that point. 2. You may keep the wound open to air as much as possible to promote healing after post-op day number 5 unless told otherwise by your doctor. 3. If you think the wound looks like it is becoming infected (redness or worsening drainage) and/or you are experiencing fever, chill or worsening back pain and muscle spasms, contact the office so that we may evaluate you as soon as possible. B. Complications are uncommon, but please contact us if you have any signs or symptoms of: 1. wound infection (fever higher than 102.5 degrees F, redness, separation of wound, drainage, or increasing pain from the incision) 2. blood clots in legs (pain, swelling, redness and warmth in legs) 3. urinary tract infection (fever higher than 102.5 degrees F, burning upon urination or increased frequency of urination) 4. nerve problems (inability to walk on your toes or heels, numbness, loss of bowel or bladder control) 5. any other symptoms that concern you C. Please call the office at if you have any concerns or questions about your operation or recovery. D. No smoking! Smoking drastically decreases the chance of a solid fusion. E. Do not take any anti-inflammatory medications (Indocin, Advil, Motrin, Aspirin, Naprosyn, etc.) as these may inhibit the chance of a solid fusion. Tylenol is okay to take for pain. MANAGING PAIN AFTER SPINAL SURGERY 1. Narcotic medication is intended for short-term use and will be provided for surgical pain. Surgical pain usually lasts for a period of 4-6 weeks. Narcotic medication includes Percocet, Vicodin, Darvocet, Tylenol #3 or Lortab. 2. Longer-term pain is more appropriately treated with non-narcotic medication such as Tylenol ES. 3. Muscle spasm is not appropriately treated with narcotics. Muscle relaxers such as Soma, Flexeril or Skelaxin can be used along with Tylenol ES. 4. Remember that we all live with some "aches and pains". This is not unusual or uncommon after an injury or as we get older. a. Back pain is expected and may include muscle spasms for 4 to 6 weeks after surgery. The pain should gradually improve. If the pain worsens for no apparent reason, please contact the office. b. Intermittent leg pain may also be experienced and should not be concerned about unless it worsens for no apparent reason. If so, please contact the office. 5. We will provide appropriate medication within the normal guidelines of their prescribed use. We will also be very cautious and aware of potential abuse and extended duration of patients' medication needs. a. Pain medications are for your comfort and to assist with sleep and rest so that the tissue can heal. They are not provided in order to return to normal activity and should not be used through the day. To do so or worsening pain at night can result from ongoing tissue damage and development of tolerance to the prescribed medicine. 6. Please allow 2-3 days to process refills. Prescriptions will not be mailed but must be picked up at the office. FOLLOW UP VISIT: Keep your scheduled follow-up appointment. Any questions, please call the office at . Pending Studies at Discharge: No Stand-Alone Forms: My [facility], Smoking Cessation Medications and DC Order Prescriptions: New tramadol 50 mg tablet 50 mg PO Q6H PRN (Reason: pain, moderate) Qty: 30 RF: 0 oxycodone 5 mg tablet 5 mg PO Q6H PRN (Reason: pain, severe) Qty: 20 RF: 0 Continued potassium chloride 10 mEq Tablet Extended Release 10 meq PO QAM RF: 0 amlodipine 5 mg Tablet 5 mg PO HS RF: 0 simvastatin 20 mg Tablet 20 mg PO QAM RF: 0 ferrous sulfate [iron] 325 mg (65 mg iron) Tablet 325 mg PO DAILY RF: 0 furosemide 20 mg Tablet 20 mg PO BID RF: 0 lisinopril 40 mg Tablet 20 mg PO BID RF: 0 cholecalciferol (vitamin D3) [Vitamin D3] 25 mcg (1,000 unit) Capsule 25 mcg PO DAILY RF: 0 cyanocobalamin (vitamin B-12) 1,000 mcg/15 mL Liquid 1,000 mcg PO UD RF: 0 omega 0-zch-osf-fish oil [Fish Oil] 1,200 (144-216) mg Capsule 1 cap PO DAILY RF: 0 Discontinued naproxen sodium [Aleve] 220 mg Capsule 440 mg PO QAM RF: 0 Discharge Orders: Discharge Order (Routine); Ordered 03/31/20 Ordered By: Jerrod Almaguer Admission Data Admit Date/Time: 03/28/20 10:37 Attending Provider: Jerrod Almaguer Admit Provider: Jerrod Almaguer Primary Care Provider: Tonny Lugo Other Providers: Naida Jordan ; [facility]
[2020-03-31] MEDS: DEXAMETHASONE SOD PHOSPHATE 8 MG in SYRINGE 0 ML IV SCH (09:07)
[2020-03-31] MEDS: POTASSIUM CHLORIDE 10 MEQ TABCR PO SCH (09:07)
[2020-03-31] MEDS: FERROUS SULFATE 325 MG TAB PO SCH (09:07)
[2020-03-31] MEDS: FUROSEMIDE 20 MG TAB PO SCH (09:08)
[2020-03-31] MEDS: CHOLECALCIFEROL 1,000 UNITS 25 MCG TAB PO SCH (09:08)
[2020-03-31] MEDS: TRAMADOL HCL 50 MG TABLET PO PRN (10:34)
[2020-04-06] MEDS ORDERED: CYANOCOBALAMIN 1000 MCG/ML VIAL IM SCH (12:30)
== END 2020-03-31 11:51 | disposition home health service (06) | DRG 454 ==
LOC: ASU 05:54 → 3E 10:37